=== PATIENT | male | born 1990 | race Two or more races ===

== ENCOUNTER → 2021-04-21 | Outpatient (CLI) | payer OTHER ==
--- NOTE | 2021-04-21 16:50 | RAD ---
EXAM: Thoracic spine, 5 views. HISTORY: Thoracic radiculopathy. Football injury. Pain. COMPARISON: None. FINDINGS: 5 views of the thoracic spine are obtained. There is minimal thoracic dextrocurvature cente red at the upper thoracic levels. There is no listhesis. There is no fracture. The disc spaces are pr eserved. There is no suspicious osseous lesion. IMPRESSION: No acute osseous finding. Electronically signed by: Mayi Hernandez MD (04/21/2021 4:48 PM) [id number]
== END ==
LOC: RAD 15:54
PROVIDERS: ATTEND Physician Assistant Medical
DX: M54.6 Pain in thoracic spine (principal)
CPT/HCPCS: 72072